=== PATIENT | female | born 2000 | race American Indian/Alaskan Native ===

== ENCOUNTER 2019-04-04 10:12 | Emergency (ER) | payer SELFPAY ==
[2019-04-04 10:22] VITALS: BP 120/70
--- NOTE | 2019-04-04 13:16 | Emergency Department Report ---
Chief Complaint: Sore Throat Stated Complaint: EAR ACHE Time Seen by Provider: 04/04/19 13:10 - HPI History of Present Illness: 18-year-old -[place] female presents to the emergency room complaining of right ear sore throat pain since this morning. Patient has taken nothing for pain management. Patient denies any difficulty swallowing no shortness of breath. Patient denies any right ear drainage no foreign object placed in ear. Denies any fever chills no nausea no vomiting. - Exam Vital Signs: Vital Signs 04/04/19 10:21 Temperature 99.2 F Pulse Rate 99 H Respiratory 16 Rate Blood Pressure 120/70 [Right] O2 Sat by Pulse 100 Oximetry Physical Exam: Patient is alert and oriented x3 no acute distress. Right ear mild tenderness to the tragus tympanic membrane clear, ear canal is red non-edematous Throat is patent no tonsillar hypertrophy treated no exudate mildly erythematous MSE screening note: Focused history and physical exam performed. Due to findings the following was ordered: 18-year-old -[place] female presents to the emergency room complaining of right ear sore throat pain since this morning. Patient has taken nothing for pain management. Patient denies any difficulty swallowing no shortness of breath. Patient denies any right ear drainage no foreign object placed in ear. Denies any fever chills no nausea no vomiting. Patient can take ibuprofen or Tylenol for pain management. Patient can use [id number] eardrops for pain. Patient can follow-up with her primary care provider or urgent care. ED Disposition for MSE Disposition: MED SCREENING EXAM-LEFT Is pt being admited?: No Does the pt Need Aspirin: No Condition: Stable Additional Instructions: Patient can take ibuprofen or Tylenol for pain management. Patient can use [id number] eardrops for pain. Patient can follow-up with her primary care provider or urgent care. Referrals: LAYLA MONTOYA MD [Primary Care Provider] - 3-5 Days Forms: Work/School Release Form(ED)
== END 2019-04-04 13:31 | disposition left against medical advice (07) ==
LOC: ED 10:12
DX: H92.01 Otalgia, right ear (principal); J02.9 Acute pharyngitis, unspecified
CPT/HCPCS: 99281